=== PATIENT | female | born 1965 | race Caucasian/White ===

== ENCOUNTER 2022-05-13 14:50 | Emergency (ER) | payer BC, SELFPAY ==
[2022-05-13 15:37] VITALS: BP 99/63; PULSE 98; RESP 18; TEMP 36.6; O2SAT 97; BMI 24.0
[2022-05-13 15:55] VITALS: BP 97/56; PULSE 94; RESP 18; O2SAT 96
--- NOTE | 2022-05-13 15:59 | XRR_ITS ---
PROCEDURE INFORMATION: Exam: XR Chest Exam date and time: 05/13/2022 4:45 PM Age: 56 years old Clinical indication: Other: Syncope TECHNIQUE: Imaging protocol: Radiologic exam of the chest. Views: 1 view. COMPARISON: No relevant prior studies available. FINDINGS: Lungs: Calcified left hilar nodes and/or mediastinal nodes and/or lung granulomas consistent with old granulomatous disease. Mildly hyperaerated lungs consistent with deep inspiratory effort vs reactive airway disease vs mild COPD . Pleural spaces: Unremarkable. No pleural effusion. No pneumothorax. Heart/Mediastinum: Unremarkable. No cardiomegaly. Bones/joints: Unremarkable. XR/XR chest 1V portable [id number] IMPRESSION: Mildly hyperaerated lungs consistent with deep inspiratory effort vs reactive airway disease vs mild COPD .
--- NOTE | 2022-05-13 15:59 | CTR_ITS ---
PROCEDURE INFORMATION: Exam: CT Head Without Contrast Exam date and time: 05/13/2022 5:31 PM Age: 56 years old Clinical indication: Syncope and collapse; Patient HX: Syncope episodes TECHNIQUE: Imaging protocol: Computed tomography of the head without contrast. Radiation optimization: All CT scans at this facility use at least one of these dose optimization techniques: automated exposure control; mA and/or kV adjustment per patient size (includes targeted exams where dose is matched to clinical indication); or iterative reconstruction. COMPARISON: No relevant prior studies available. RADIATION DOSE METRICS: Total DLP (mGy-cm): 1086.71 FINDINGS: Brain: Normal. No hemorrhage. Unremarkable white matter. No mass effect. Cerebral ventricles: No ventriculomegaly. Paranasal sinuses: Mild left sphenoid sinus disease. Mastoid air cells: Visualized mastoid air cells are well aerated. Bones/joints: Developmental defect in the posterior arch of C1 which is a normal variant. Soft tissues: Unremarkable. CT/CT head wo con* [id number] IMPRESSION: 1. Mild left sphenoid sinus disease. 2. No acute intracranial findings.
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
--- NOTE | 2022-05-13 16:00 | ECG_ITS ---
[facility] Test Date: 2022-05-13 Pat Name: Erica Dean Department: Room: Gender: Female [employer]iss [employer] Operator: : [id number] Requested By: Gabriele Sultana Order Number: [id number] Malgorzata MD: Franc Maxwell M.D. Measurements Intervals [place] Rate: 83 P: 63 CO: 129 QRS: 87 QRSD: 82 T: 80 QT: 394 QTc: 465 Interpretive Statements SINUS RHYTHM No previous ECG available for comparison Electronically Signed On 05-13-2022 21:00:33 CDT by Franc Maxwell M.D. [email or web address]
[2022-05-13 16:22] LABS: Basophils % 0.5 %; Eosinophils % 0.3 %; Hematocrit 43.2 % (37.0-47.0); Hemoglobin 13.6 g/dL (11.5-15.3); Lymphocytes # 0.6 10^3/uL (0.8-4.8); Lymphocytes % 17.1 %; Mean Corpuscular HGB Conc 31.5 g/dL (30.0-36.0); Mean Corpuscular Hemoglobin 29.2 pg (28.0-34.0); Mean Corpuscular Volume 92.9 fl (81-99); Mean Platelet Volume 9.3 fL (7.4-10.4); Monocytes # 0.8 10^3/uL (0.2-0.9); Monocytes % 20.6 %; Neutrophils # 2.26 10^3/uL (1.8-7.7); Neutrophils % 61.2 %; Nucleated Red Blood Cells % 0 %; Platelet Count 296 10^3/cmm (130-400); Red Blood Count 4.65 10^6/uL (4.1-5.3); Red Cell Distribution Width 12.6 % (12.1-15.1); White Blood Count 3.7 10^3/uL (4.0-10.0)
[2022-05-13] MEDS: sodium chloride 0.9% 1,000 ML 999 ML IV (16:30)
[2022-05-13 17:00] LABS: Troponin(5th) Baseline 6 ng/L (0-10)
[2022-05-13 17:10] LABS: Alanine Aminotransferase 15 U/L (0-33); Albumin Level 4.2 g/dL (3.5-5.2); Alkaline Phosphatase 87 IU/L (35-105); Anion Gap 14.6 (5-19); Aspartate Amino Transferase 20 U/L (0-32); Blood Urea Nitrogen 13 mg/dL (6-20); Calcium 9.2 mg/dL (8.5-10.5); Carbon Dioxide 29 mmol/L (22-29); Chloride 102 mmol/L (98-107); Creatine Phosphokinase 107 U/L (26-192); Globulin 2.3 g/dL (1.3-4.6); Glomerular Filtration Rate 65.2 mL/min (90-130); Glucose 98 mg/dL (65-115); NT Pro B Type Natriuretic Pept 126 pg/mL (0-125); Osmolality Calculated 294 mOsm/kg (285-295); Potassium 3.6 mmol/L (3.5-5.1); Sodium 142 mmol/L (136-145); Thyroid Stimulating Hormone 0.63 uIU/mL (0.27-4.20); Total Bilirubin 0.2 mg/dL (0.15-1.2); Total Protein 6.5 g/dL (6.6-8.7)
[2022-05-13 17:10] LABS: SARS Covid-2 Antigen Positive (Negative)
[2022-05-13 17:59] VITALS: BP 108/62; PULSE 90; RESP 18; O2SAT 95
[2022-05-13 18:00] VITALS: BP 108/62; PULSE 92; RESP 17; O2SAT 93
[2022-05-13 18:34] LABS: Amphetamines Screen Urine Positive (Negative); Barbiturates Screen Urine Negative (Negative); Benzodiazepines Screen Urine Negative (Negative); Cocaine Screen Urine Negative (Negative); Opiate Screen Urine Negative (Negative); PCP Screen Urine Negative (Negative); THC Screen Urine Negative (Negative)
[2022-05-13 18:35] LABS: Glucose Urine UA Norm (Normal); Ketones Urine 1+ (Negative); Protein Urine Trace (Negative); Urine Appearance SL Hazy (CLEAR); Urine Color Yellow (Yellow); pH Urine 5 (5-7)
[2022-05-13 18:36] LABS: Bilirubin Urine Neg (Negative); Blood Urine Neg (Negative); Leukocyte Esterase Urine Trace (Negative); Nitrate Urine Negative (Negative); Urobilinogen Urine Norm (Negative)
[2022-05-13 18:37] LABS: Bacteria Urine 2+ /hpf; Mucus Urine 2+ /hpf
[2022-05-13 18:39] LABS: Add Urine Culture? No
[2022-05-13 19:10] VITALS: BP 121/74; PULSE 87; RESP 16; O2SAT 95
== END 2022-05-13 19:13 | disposition home or self-care (01) ==
PROVIDERS: Emergency Provider Emergency Medicine
DX: R55 Syncope and collapse (principal); U07.1 COVID-19
CPT/HCPCS: 70450; 71045; 80053; 80306; 81001; 82550; 83880; 84439; 84443; 84484; 85025; 87426; 93005; 96360; 96361; 99285; J7030